=== PATIENT | male | born 2000 | race Hispanic/Latino ===

== ENCOUNTER 2023-02-01 21:11 | Emergency (ER) | payer OTHER ==
[~2023-02-01] VITALS: Ht 180.3 cm; Wt 72.6 kg
[2023-02-01] MEDS ORDERED: OCTYL 2-CYANOACRYLATE 1 EACH TP ONE (21:18)
[2023-02-01 21:25] VITALS: BP 132/85; PULSE 99; RESP 16; O2SAT 100
[2023-02-01] MEDS ORDERED: CEPH500B PO (21:27)
[2023-02-01] MEDS ORDERED: OCTYL 2-CYANOACRYLATE 1 EACH TP SCH (21:30)
== END 2023-02-01 22:15 | disposition home or self-care (01) ==
LOC: EDH 21:11
DX: S51.811A Laceration without foreign body of right forearm, initial encounter (principal); W25.XXXA Contact with sharp glass, initial encounter; Y93.89 Activity, other specified; Y92.89 Other specified places as the place of occurrence of the external cause; Y99.8 Other external cause status
CPT/HCPCS: 12001; 12002; 73090

== ENCOUNTER 2025-03-18 10:50 | Emergency (ER) | payer SELFPAY ==
[~2025-03-18] VITALS: Ht 180.3 cm; Wt 77.2 kg
[~2025-03-18 10:50] MED LIST: CEPH500B PO
[2025-03-18] MEDS ORDERED: IBUP-2077 PO (11:04)
--- NOTE | 2025-03-18 11:04 | ERN ---
ED Note History of Present Illness Stated Complaint: CHEST WALL PAIN X 3 DAYS AFTER HEAVY LIFTING Chief Complaint: Chest Wall Pain Time Seen by MD: 10:55 Dictation: PATIENT IS A 24-YEAR-OLD MALE HERE WITH COMPLAINTS OF LEFT CHEST LAST PECTORALIS MUSCLE PAIN HE HAS HAD FOR THREE DAYS. 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 NO SOB NO SUBSTERNAL CHEST PAIN NO RADICULOPATHY NO JAW PAIN NO ARM PAIN. NO PRIMARY CARE DOCTOR AND HE STATES HE HAS NOT TAKEN ANYTHING PRIOR TO ARRIVAL FOR PAIN Allergies: Coded Allergies: No Known Drug Allergies (Unverified Allergy, Unknown, 02/01/23) Home Meds Active Scripts Cephalexin Monohydrate (Keflex) 500 Mg Cap, 500 MG PO QID for 7 Days, #28 CAP Prov:GAGANDEEP COYNE MD 02/01/23 Past Medical History Past Medical History: No Pertinent History Surgical History: None Family History: DM, HTN Social History: ETOH, Lives with family RN Note Reviewed/Agreed w/PFSH: Yes Review of System Dictation CONSTITUTIONAL: NEGATIVE EXCEPT FOR HPI HEAD/FACE: NEGATIVE EXCEPT FOR HPI EENT: NEGATIVE EXCEPT FOR HPI RESPIRATORY: NEGATIVE EXCEPT FOR HPI LEFT CHEST PAIN GASTROINTESTINAL/ABDOMINAL: NEGATIVE EXCEPT FOR HPI GENITOURINARY: NEGATIVE EXCEPT FOR HPI MUSCULOSKELETAL: NEGATIVE EXCEPT FOR HPI INTEGUMENTARY: NEGATIVE EXCEPT FOR HPI NEUROLOGICAL/PSYCH: NEGATIVE EXCEPT FOR HPI HEMATOLOGIC/LYMPHATIC: NEGATIVE EXCEPT FOR HPI ALL SYSTEMS NEGATIVE, EXCEPT NOTED ABOVE. 13 POINT REVIEW OF SYSTEMS ASSESSED AND ALL NEGATIVE EXCEPT FOR ABOVE. Initial Vital Sign VS Vital Signs Date Time Temp Pulse Resp B/P (MAP) Pulse Ox O2 Delivery O2 Flow Rate FiO2 03/18/25 10:55 98.1 97 16 135/82 100 Room Air 0 Physical Exam Dictation VITAL SIGNS REVIEWED GENERAL APPEARANCE: ALERT, ORIENTED X 3, N MILD ACUTE DISTRESS, WELL DEVELOPED, NOURISHED. HEAD AND FACE: NON-TRAUMATIC. EYES: PERRL, PINK CONJUNCTIVAS, EYELID NO TRAUMA, ANTERIOR CHAMBER WITH ARCUS SENILIS. EARS: PINNAS INTACT AND NO SIGNS OF TRAUMA OR ERYTHEMA EAR CANALS CLEAR AND NO DISCHARGE TM NO ERYTHEMA NOSE: NO DISCHARGE, NO BLEEDING. OROPHARYNX: MOUTH NORMAL, TONGUE PINK, PHARYNX CLEAR,NO ERYTHEMA, TONSILS NO EXUDATES, NO ABSCESSES NOTED, MUCOUS MEMBRANE MOIST NECK: SUPPLE, NON-TENDER, NO THYROMEGALY, NO MASSES, NO JVD, NO BRUITS BREAST:DEFERRED CHES MILD LEFT LATERAL PECTORAL TENDERNESS WITH PALPATION. SKIN INTACT NO ERYTHEMA NO SWELLING NO SKIN CHANGES., NO CREPITUS, NO PARADOXICAL MOVEMENT, NO RETRACTIONS LUNGS:CLEAR, WELL-VENTILATED, SYMMETRIC, NO RALES, NO WHEEZING, NO RHONCHI, NO STRIDOR, GOOD BREATH SOUNDS BILATERALLY HEART: REGULAR RATE, REGULAR RHYTHM, NO MURMUR, NO GALLOPS VASCULAR: NO PERIPHERAL EDEMA, ABDOMEN: SOFT, POSITIVE BOWEL SOUNDS, NONDISTENDED, NO GUARDING, NONTENDER, NO REBOUND, NO MASSES NO HEPATOMEGALY, NO SPLENOMEGALY, NO NAIR'S SIGN, NO HERNIAS. RECTAL: DEFERRED GENITAL: DEFERRED NEUROLOGICAL: NORMAL SPEECH, MOTOR FUNCTION INTACT, SENSORY FUNCTION INTACT MUSCULOSKELETAL: NECK NONTENDER, FULL RANGE OF MOTION, BACK NONTENDER, FULL RANGE OF MOTION, EXTREMITIES: NONTENDER, FULL RANGE OF MOTION SKIN: COLOR PINK, DRY, NO TURGOR, NO RASH, NO LACERATIONS, NO ABRASIONS, NO CONTUSIONS. LYMPHATIC: DEFERRED Results (Laboratory/Radiology) Labs Reviewed?: Yes ED Course ED Course Orders Procedure Category Date Status Time Ibuprofen 800 Mg Tab PHA 03/18/25 Transmitted (Motrin) 11:00 Vital Signs Date Time Temp Pulse Resp B/P (MAP) Pulse Ox O2 Delivery O2 Flow Rate FiO2 03/18/25 10:55 98.1 97 16 135/82 100 Room Air 0 1102/NO LABS OR IMAGING INDICATED. PATIENT WILL BE TREATED FOR ACUTE CHEST WALL STRAIN. GIVEN IBUPROFEN AND TOLD TO FOLLOW UP WITH HIS DOCTOR Medical Decision Making MDM MEDICAL DECISION-MAKING BASED ON EMPIRIC TREATMENT FOR A MUSCLE STRAIN TO THE LEFT CHEST. NO LABS OR IMAGING INDICATED PATIENT HAD NOT TAKEN ANYTHING PRIOR TO ARRIVAL FOR PAIN, GIVEN MOTRIN 800 WRITTEN OUT OF WORK UNTIL CLEARED BY HIS PRIMARY CARE DOCTOR DX & DISP Disposition: Discharge Departure Impression: Primary Impression: Muscle strain of chest wall Condition: Stable Scripts Ibuprofen (Ibuprofen 800 mg Tab) 800 Mg Tab 800 MG PO Q8H PRN for fever or pain, #30 TAB 0 Refills Prov: ERIK OROURKE POLEYARD SUPERVISOR 03/18/25 Additional Instructions: FOLLOW-UP WITH PRIMARY CARE PROVIDER IN 1 TO 2 DAYS. TAKE MEDICATIONS DIRECTED HERE IN THE EMERGENCY ROOM. OKAY TO CONTINUE HOME MEDICATIONS UNLESS OTHERWISE DISCUSSED DURING YOUR VISIT IN THE EMERGENCY ROOM TODAY. RETURN TO YOUR NEAREST EMERGENCY ROOM IF SYMPTOMS WORSEN OR IF THERE IS NO IMPROVEMENT. CALL 911 IF YOU NEED IMMEDIATE ASSISTANCE. TAKE TYLENOL OR MOTRIN [id number] NEEDED AND IF NO CONTRAINDICATIONS ARE PRESENT. INCREASE ORAL HYDRATION. A WOUND CULTURE OR URINE CULTURE WAS ORDERED HERE IN THE EMERGENCY ROOM DEPARTMENT PLEASE FOLLOW-UP WITH PRIMARY CARE PROVIDER AND ADVISE THEM TO GET REPEAT PORTS FROM OUR FACILITY. IF YOU HAD ANY YUNIOR WRAP/SPLINTS THAT WERE APPLIED HERE, PLEASE DO NOT REMOVE THEM UNTIL YOU SEE YOUR PRIMARY CARE OR SPECIALTY. TAKE IBUPROFEN EVERY 8 HOURS FOR THE NEXT TWO DAYS WITH FOOD. WARM COMPRESSES TO PAIN THREE TO 4 TIMES A DAY. NO LIFTING GREATER THAN 10 LB AND NO WORK UNTIL CLEARED BACK BY YOUR PRIMARY CARE DOCTOR. SEE ONE OF THE DOCTORS ON THE LIST PROVIDED YOU. Referrals: SELF,REFERRAL (PCP) Time of Disposition: 11:02 I have reviewed the case, and I agree with, Diagnosis and Plan ERIK OROURKE Mar 18, 2025 11:04
[2025-03-18 11:22] VITALS: BP 132/87; PULSE 88; RESP 16; TEMP 98.3; O2SAT 100
== END 2025-03-18 11:24 | disposition home or self-care (01) ==
LOC: EDH 10:50
DX: S29.011A Strain of muscle and tendon of front wall of thorax, initial encounter (principal); X58.XXXA Exposure to other specified factors, initial encounter; Y93.89 Activity, other specified; Y92.89 Other specified places as the place of occurrence of the external cause; Y99.8 Other external cause status
CPT/HCPCS: 99283